=== PATIENT | female | born 1965 | race Caucasian/White ===

== ENCOUNTER 2018-06-21 08:49 | Day surgery (SDC) | payer OTHER ==
[2018-06-18 10:57] VITALS: BMI 29.8
[2018-06-21] MEDS ORDERED: LIDOCAINE HCL 1%, 10 MG/ML (20ML VIAL) ONE (10:33)
[2018-06-21] MEDS ORDERED: MIDAZOLAM HCL 2 MG/2 ML SINGLE DOSE VIAL ONE ×3 (11:12→12:10)
[2018-06-21] MEDS ORDERED: PROPOFOL 20 ML ONE ×2 (11:49)
[2018-06-21] MEDS ORDERED: ceFAZolin SODIUM 1 GM VIAL ONE (11:51)
[2018-06-21] MEDS ORDERED: DEXAMETHASONE SOD PHOSPHATE 4 MG/1 ML VIAL ONE (11:53)
[2018-06-21] MEDS ORDERED: SUCCINYLCHOLINE CHLORIDE 200 MG/10 ML VIAL ONE (11:54)
[2018-06-21] MEDS ORDERED: ACETAMINOPHEN INJECTION 100 ML IVPB ONE (12:07)
[2018-06-21] MEDS ORDERED: METHYLENE BLUE 1% 10 MG/1 ML VIAL NR ONE (12:10)
[2018-06-21] MEDS ORDERED: ceFAZolin SODIUM 1 GM VIAL IVPB ONE (12:15)
[2018-06-21] MEDS ORDERED: KETOROLAC TROMETHAMINE 30 MG/1 ML VIAL ONE (12:29)
[2018-06-21] MEDS ORDERED: ePHEDrine SULFATE 50 MG/1 ML AMPULE ONE (12:33)
[2018-06-21] MEDS ORDERED: ONDANSETRON 4 MG/2 ML VIAL IVPUSH PRN (14:09)
[2018-06-21] MEDS ORDERED: oxyCODONE HCL 5 MG TABLET PO PRN (14:09)
[2018-06-21] MEDS ORDERED: LACTATED RINGERS SOLUTION 1,000 ML IV SCH (14:30)
[2018-06-21] MEDS ORDERED: ONDANSETRON 4 MG/2 ML VIAL ONE (14:52)
[2018-06-21 16:25] VITALS: PULSE 93; TEMP 97.5
[2018-06-21 17:30] VITALS: BP 115/71
[2018-06-22] MEDS ORDERED: DOCUSATE SODIUM 100 MG CAPSULE (FP) PO SCH (22:00)
--- NOTE | 2018-06-25 11:51 | PATH ---
Surgical Pathology Report Patient Name: ALLEN REID [facility]. Rec. #: [id number] /Age/Gender: 1965 (Age: 52) / F Account: [id number] Location: [facility] SURGICAL Taken: 06/21/2018 Received: 06/22/2018 Reported: 06/25/2018 Physicians: Lupe Rodriguez M.D. Specimen(s) Received A: LEFT AXILLARY SENTINEL LYMPH NODE #1 B: LEFT AXILLARY SENTINEL LYMPH NODE #2 C: LEFT AXILLARY SENTINEL LYMPH NODE #3 D: LEFT AXILLARY SENTINEL LYMPH NODE #4 E: LEFT AXILLARY SENTINEL LYMPH NODE #5 F: LEFT BREAST LUMPECTOMY Clinical History Left breast cancer Final Diagnosis A. AXILLARY SENTINEL LYMPH NODE #1, LEFT, EXCISION: ONE LYMPH NODE WITH MICROMETASTATIC CARCINOMA (>0.2 mm to 2 mm, 1/1). TUMOR DEPOSIT MEASURES 1.5 MM IN GREATEST MICROSCOPIC DIMENSION. NO EXTRANODAL EXTENSION IDENTIFIED. B. AXILLARY SENTINEL LYMPH NODE #2, LEFT, EXCISION: ONE BENIGN LYMPH NODE (0/1). C. AXILLARY SENTINEL LYMPH NODE #3, LEFT, EXCISION: ONE BENIGN LYMPH NODE (0/1). D. AXILLARY SENTINEL LYMPH NODE #4, LEFT, EXCISION: ONE BENIGN LYMPH NODE (0/1). E. AXILLARY SENTINEL LYMPH NODE #5, LEFT, EXCISION: ONE BENIGN LYMPH NODE (0/1). F. BREAST, LEFT, LUMPECTOMY: INVASIVE DUCTAL CARCINOMA, MODERATELY DIFFERENTIATED (TUBULE SCORE: 3/3, NUCLEAR GRADE: 2/3, MITOTIC SCORE: 1/3; TOTAL FELIPE SCORE: 6/9). INVASIVE CARCINOMA MEASURES 1.9 CM IN GREATEST MICROSCOPIC DIMENSION. FOCAL DUCTAL CARCINOMA IN SITU (DCIS), CRIBRIFORM AND FOCAL MICROPAPILLARY TYPES, INTERMEDIATE NUCLEAR GRADE. NO LYMPHOVASCULAR INVASION IDENTIFIED. SURGICAL MARGINS ARE UNINVOLVED BY CARCINOMA; INVASIVE CARCINOMA IS 1.2 CM FROM THE CLOSEST SUPERIOR MARGIN; DCIS 1.1 CM FROM CLOSEST SUPERIOR MARGIN. REMAINDER OF BREAST PARENCHYMA SHOWS FOCAL LOBULAR CARCINOMA IN SITU (LCIS), CLASSICAL TYPE, IN A BACKGROUND OF FIBROCYSTIC CHANGES. PRIOR BIOPSY SITE CHANGES ARE PRESENT. PATHOLOGIC STAGE (pTNM): pT1c pN1mi (sn). SEE INVASIVE CARCINOMA CASE SUMMARY BELOW. Comment: Immunohistochemical stain performed and interpreted at [facility] show the invasive ductal carcinoma is positive for E-cadherin, while negative in LCIS. Comments Breast Invasive Carcinoma: Surgical Pathology Case Summary (Based on AJCC TNM 8 th edition) Procedure _X_ Excision (less than total mastectomy) Specimen Laterality _X_ Left Tumor Size _X__ Greatest dimension of largest invasive focus >1 mm (specify exact measurement) (millimeters): _19__ mm Histologic Type _X_ Invasive carcinoma of no special type (ductal, not otherwise specified) Histologic Grade (Felipe Histologic Score) Glandular (Acinar)/Tubular Differentiation _X_ Score 3 (<10% of tumor area forming glandular/tubular structures) Nuclear Pleomorphism _X__ Score 2 Mitotic Rate _X_ Score 1 Overall Grade _X__ Grade 2 (scores of 6) Tumor Focality _X__ Single focus of invasive carcinoma Ductal Carcinoma In Situ (DCIS) _X__ DCIS is present in specimen _X_ Negative for extensive intraductal component (EIC) Margins Invasive Carcinoma Margins _X_ Uninvolved by invasive carcinoma Distance from closest margin (millimeters): 12 mm Closest margin: Superior DCIS Margins _X_ Uninvolved by DCIS Distance from closest margin (millimeters): _11__ mm Closest margin: Superior Regional Lymph Nodes Number of Lymph Nodes with Macrometastases (>2 mm): 0 Number of Lymph Nodes with Micrometastases (>0.2 mm to 2 mm and/or >200 cells): 1 Number of Lymph Nodes with Isolated Tumor Cells (=0.2 mm and =200 cells): 0 Size of Largest Metastatic Deposit (millimeters): 1.5 mm Extranodal Extension: _X_ Not identified Number of Lymph Nodes Examined: 5 Number of [place] Nodes Examined : 5 Treatment Effect _X_ No known presurgical therapy Lymphovascular Invasion _X_ Not identified Pathologic Stage Classification (pTNM, AJCC 8th Edition) Primary Tumor (Invasive Carcinoma) (pT) _X_ pT1c: Tumor >10 mm but =20 mm in greatest dimension Regional Lymph Nodes (pN) Modifier __X_ (sn): [place] node(s) evaluated. Category (pN) _X__ pN1mi: Micrometastases (approximately 200 cells, larger than 0.2 mm, but none larger than 2.0 mm Biomarker Studies Results of ER and MA studies performed on this specimen (block# F2) at [facility] are as follows: ER (clone [id number] mouse monoclonal antibody by [employer]): ~99% nuclear staining with strong intensity (Positive). MA (clone16 mouse monoclonal antibody by [employer]): ~99% nuclear staining with strong intensity (Positive). Results of Her2 (IHC) & Ki-67 studies are pending and will be reported separately Positive and negative controls (internal if applicable) show appropriate results. Formalin fixation and cold ischemic times are within current ASCO/CAP recommendations for ER, MA and Her2 testing. Electronically Signed Tonie Saavedra M.D. Addendum Reported: 06/25/2018 Addendum Diagnosis Results of Her2 (IHC) & Ki-67 studies performed on block "F2 " at [place], [place] ([id number]) are as follows: Her2 IHC (EP3 from [employer], formerly known as [id number], using [employer] Polymer Refine detection kit): 1+ (Negative). Ki-67: ~5% (Low proliferative index). Positive and negative controls (internal if applicable) show appropriate results. Tonie Saavedra M.D. Gross Description A. Received in formalin labeled "left axillary sentinel lymph node #1," is a 2.0 x 1.4 x 0.5 cm morejon-blue lymph node with attached fat. The specimen is bisected and entirely submitted in 2 cassettes. B. Received in formalin labeled "left axillary sentinel lymph node #2," is a 0.7 x 0.5 x 0.4 cm blue lymph node with attached fat. The specimen is bisected and entirely submitted in one cassette. C. Received in formalin labeled "left axillary sentinel lymph node #3," is a 1.2 x 0.6 x 0.5 cm morejon lymph node with attached fat. The specimen is bisected and entirely submitted in one cassette. D. Received in formalin labeled "left axillary sentinel lymph node #4," is a 0.7 x 0.5 x 0.4 cm morejon lymph node with attached fat. The specimen is bisected and entirely submitted in one cassette. E. Received in formalin labeled "left axillary sentinel lymph node #5," is a 0.7 x 0.6 x 0.4 cm morejon lymph node. The specimen is bisected and entirely submitted in one cassette. F. Received in formalin, labeled "left breast lumpectomy," is a 6.5 x 5.8 x 4.8 cm. morejon-yellow, irregular, portion of fibroadipose tissue with a needle localization wire present. There is a short suture marking the superior aspect and a long suture marking the lateral aspect, per the surgeon. There is no skin or nipple present. The specimen is inked as follows: Superior blue; inferior green; anterior and lateral red; medial yellow; deep black. The specimen is serially sectioned from anterior to deep. Sectioning reveals a 1.9 x 1.9 x 1.0 cm morejon, indurated mass. The mass is 1.0 cm from the superior margin and 1.3 cm from the inferior margin. The remaining margins appear clear of the mass. There is a strickland metallic biopsy clip identified within the mass. Pot Room Supervisor sections are submitted in 9 cassettes as follows: 1-full face section of mass; 2-mass with superior margin; 3-additional superior margin; 4-mass with inferior margin; 5-additional inferior margin; 6-lateral margin; 7-medial margin; 8-anterior margin; 9-deep margin. Total formalin fixation time: Approximately 26 hours 06/22/201806/22/2018
--- NOTE | 2018-07-12 21:52 | OP ---
DATE OF OPERATION: 06/21/2018 PREOPERATIVE DIAGNOSIS: Left breast cancer. POSTOPERATIVE DIAGNOSIS: Left breast cancer. PROCEDURE: Left breast ultrasound-guided wire localized lumpectomy with sentinel node biopsy. SURGEON: Lupe Rodriguez MD ANESTHESIA: General. ESTIMATED BLOOD LOSS: Minimal. COMPLICATIONS: None. This was a sterile procedure. INDICATIONS: Patient presented with a screening mammography that noted a new density in the outer posterior left breast. On ultrasound, there appeared to be a 1-cm solid, irregular mass in the 3:30 to 4 o'clock location, 9 cm from the nipple. She underwent a needle biopsy that showed an ER/VT positive, HER2/rivera negative infiltrating duct carcinoma. My recommendation was a lumpectomy with sentinel node biopsy. The procedure discussed with all her questions answered. PROCEDURE IN DETAIL: Patient was brought to [facility] and taken down to nuclear medicine, and I injected technetium-labeled sulfur colloid as an intradermal injection in the left 4 o'clock areolar border. She was then brought up to the operating room, and after induction of general anesthesia and IV antibiotics, an intraoperative ultrasound was performed over the left 4 o'clock location. The lesion was identified. Using Betadine and 1% lidocaine, a Kopans wire was used to localize this lesion in the operating room. The left breast and axilla were then prepped and draped in usual sterile fashion, and 2.5 mL of methylene blue diluted with 2.5 mL of injected with saline was then injected into the left subareolar plexus. The breast was massaged for 5 minutes. The breast and axilla were then re-prepped and re-draped, and a 4-cm incision was made in the left axilla, carried down through the clavipectoral fascia to identify sentinel lymph node number 1 that was hot and blue. There was also 4 other sentinel lymph nodes that were also removed. These were all sent to Pathology for permanent section. Hemostasis was assured with electrocautery, and next, the left breast lumpectomy was performed. An incision was made in the outer left breast, and the wire was used as a guide to get down to the area of interest, which was excised en bloc and tagged with a long stitch lateral, short stitch superior. An intraoperative ultrasound was performed off the field, and this appeared to note adequate margins. This was sent to Pathology for permanent section. Hemostasis was assured with electrocautery. The parenchyma approximated with interrupted 2-0 Vicryl, skin approximated with interrupted 3-0 Vicryl and running 4-0 Prolene. A sterile dressing with Tegaderm was applied. The axillary incision was also closed in the routine fashion with interrupted 3-0 Vicryl and running 4-0 Prolene. A sterile dressing with Tegaderm and 4 x 4's applied. She tolerated the procedure well, was extubated on the operating room table, taken to Recovery in good condition. Eyal [id number]
== END 2018-06-21 16:45 | disposition home or self-care (01) ==
LOC: JASU-SURG 08:49
PROVIDERS: ATTEND Surgery
PROC: 0HBU0ZZ Excision of Left Breast, Open Approach (ICD-10-PCS; principal; 2018-06-21 11:00)
DX: C50.912 Malignant neoplasm of unspecified site of left female breast (principal)
CPT/HCPCS: 78195-TC; 88307-TC; 88342-TC; 94760; A9541; J0131